=== PATIENT | female | born 1990 | race Caucasian/White ===

== ENCOUNTER 2018-02-21 09:23 | Day surgery (SDC) | payer OTHER ==
[~2018-02-21 09:23] MED LIST: CEFAZOLIN 1 GM INJ; LIDOCAINE 2% (SDV) 5 ML INJ; PROPOFOL 200 MG INJ
[2018-02-21] MEDS ORDERED: MIDAZOLAM 1 MG/ML 2 ML INJ (10:52)
[2018-02-21] MEDS ORDERED: ONDANSETRON 4 MG INJ (11:18)
[2018-02-21] MEDS ORDERED: DEXAMETHASONE 4 MG/ML 1 ML INJ (11:19)
[2018-02-21] MEDS ORDERED: FAMOTIDINE 20 MG INJ (11:19)
[2018-02-21] MEDS: BUPIVACAINE 0.5% (SDV) 30 ML INJ (11:25)
[2018-02-21] MEDS ORDERED: THROMBIN 5000 UNIT VIAL (11:37)
[2018-02-21] MEDS ORDERED: ACETAMINOPHEN 1000MG/100ML IV 100 ML (11:42)
[2018-02-21] MEDS ORDERED: KETOROLAC 30 MG INJ (11:45)
[2018-02-21] MEDS ORDERED: FENTAnyl 50 MCG/ML VIAL (11:45)
[2018-02-21] MEDS: GELATIN SIZE 100 SPONGE (12:33)
[2018-02-21] MEDS: HYDROmorphONE (0.2 MG/ML) 10ML SYG IV ×3 (12:55→13:18)
== END 2018-02-21 15:14 | disposition home or self-care (01) ==
LOC: SDS 09:23
DX: S66.11 Strain of flexor muscle, fascia and tendon of other and unspecified finger at wrist and hand level (principal); X58.XXXD Exposure to other specified factors, subsequent encounter; E66.9 Obesity, unspecified; Z68.36 Body mass index [BMI] 36.0-36.9, adult
CPT/HCPCS: 26862; 73140